=== PATIENT | male | born 1955 | race Caucasian/White ===

== ENCOUNTER 2022-12-26 06:36 | Day surgery (SDC) | payer MEDICARE, OTHER ==
[~2022-12-26] VITALS: Ht 172.7 cm; Wt 62.7 kg
[2022-12-26] MEDS ORDERED: BENZOCAINE 20% 50 MCG/SPRAY 57 GM TP ONE (06:37)
[2022-12-26] MEDS ORDERED: LIDOCAINE 2% 11 ML JELLY TP ONE (06:37)
[2022-12-26] MEDS ORDERED: LIDOCAINE 4% 50 ML SOLUTION TP ONE (06:37)
[2022-12-26 06:44] LABS: COVID AG,FIA SOURCE NASAL SWAB
[2022-12-26] MEDS ORDERED: SODIUM CHLORIDE 0.9% 1,000 ML IV ONE (07:00)
[2022-12-26] MEDS ORDERED: TRAZ-252 PO (07:08)
[2022-12-26] MEDS ORDERED: LISI10TA24 PO (07:08)
[2022-12-26] MEDS ORDERED: METF-1211 PO (07:08)
[2022-12-26] MEDS ORDERED: ROSU10TA72 PO (07:08)
[2022-12-26] MEDS ORDERED: TAMS-13 PO (07:08)
[2022-12-26] MEDS ORDERED: BECL10.62 IH (07:08)
[2022-12-26] MEDS ORDERED: ESCI10 PO (07:08)
[2022-12-26] MEDS ORDERED: AZEL137S8 NASAL (07:08)
[2022-12-26] MEDS ORDERED: CYAN-53 PO (07:09)
[2022-12-26] MEDS ORDERED: CHOL100062 PO (07:09)
[2022-12-26] MEDS ORDERED: SODIUM CHLORIDE 0.9% 0 ML ONE (07:28)
[2022-12-26] MEDS ORDERED: SODIUM CHLORIDE 0.9% 1,000 ML ONE (07:34)
[2022-12-26] MEDS ORDERED: MIDAZOLAM HCL 2 MG/2 ML VIAL ONE (08:14)
[2022-12-26] MEDS ORDERED: FentaNYL CITRATE PF 100 MCG/2 ML VIAL ONE (08:14)
[2022-12-26 08:17] LABS: GLUCOMETER DEV NAME(LOC) SDS.; GLUCOSE,POINT OF CARE 192 MG/DL (70-110)
[2022-12-26] MEDS ORDERED: MethylPREDNISolone SOD SUCC 125 MG/2 ML VIAL ONE ×2 (08:55→10:20)
[2022-12-26] MEDS ORDERED: MethylPREDNISolone SOD SUCC 125 MG/2 ML VIAL IVP ONE (09:45)
== END 2022-12-26 11:30 | disposition home or self-care (01) ==
LOC: SURGERY 06:36
PROVIDERS: ATTEND Internal Medicine Critical Care Medicine
DX: R05.3 Chronic cough (principal); F17.210 Nicotine dependence, cigarettes, uncomplicated; E11.9 Type 2 diabetes mellitus without complications; R91.1 Solitary pulmonary nodule; J98.09 Other diseases of bronchus, not elsewhere classified; E78.00 Pure hypercholesterolemia, unspecified; Z79.899 Other long term (current) drug therapy; Z20.822 Contact with and (suspected) exposure to COVID-19
CPT/HCPCS: 31623; 88112; 82962; 87206; 87101; 87220; 87070; 31624; 71045; 87015; 87426; J3010; J2250; J2930; Q9967; J7030; C9803; Z7610